=== PATIENT | male | born 1990 | race Hispanic/Latino ===

== ENCOUNTER 2024-11-12 17:26 | Emergency (ER) | payer OTHER, SELFPAY ==
[2024-11-12] MEDS ORDERED: Ondansetron PF 4 MG/2 ML Vial ONE (17:52)
[2024-11-12] MEDS ORDERED: Acetaminophen 500 MG TAB ONE (19:37)
== END 2024-11-12 19:06 | disposition home or self-care (01) ==
LOC: ERS 17:26
DX: S20.319A Abrasion of unspecified front wall of thorax, initial encounter (principal); S80.211A Abrasion, right knee, initial encounter; V89.2XXA Person injured in unspecified motor-vehicle accident, traffic, initial encounter; Y93.89 Activity, other specified
CPT/HCPCS: 70450; 71260; 72125; 74177; 93005; 96374; J2405